=== PATIENT | male | born 1975 | race Caucasian/White ===

== ENCOUNTER 2017-01-25 14:13 | Emergency (ER) | payer MEDICAID ==
--- NOTE | ~2017-01-25 | CR63 ---
[facility] RADIOLOGY TEXT RESULTS PATIENT: JAVIER GAINES LOCATION: SED : 75 UNIT #: [id number] AGE: [address]: Miles Reed DO SEX: M ORDER DR: [id number] [address] [address] [id number] E MR#: [id number] Acc #: [id number] NAME: JAVIER GAINES : 1975 SEX: M STUDY DATE/TIME: 01/25/2017 14:18 UNIT: SED ROOM: STUDY DESCRIPTION: CR Chest 2 View Attending Physician: Miles Reed Ordering Physician: Staff Doctor Not On Primary Care Physician: Mara Hurst M.D. MEDICAL IMAGING REPORT This report is preliminary unless electronic signature is present. EXAM 2 views chest HISTORY Cough, left side chest pain. Symptoms for 6 weeks. Left side chest pain began today. FINDINGS PA and lateral radiographs of the chest are presented. Comparison 07/27/2015. Heart and mediastinum normal in size and contour. The lungs well inflated. Localized area of relatively dense airspace disease in the posterior medial left lower lobe. A vaguely band-like/wedge-shaped configuration. This most likely represents an area of pneumonia. Please correlate with clinical presentation. Short-interval followup to confirm resolution recommended. Given location, correlate with any risk factors for aspiration. If the finding does not clear in the near-term with treatment for pneumonia or if the patient is not demonstrating clinical signs or symptoms of pneumonia then CT examination may be warranted for assessment of atypical airspace processees. In the appropriate clinical context, given the somewhat wedge-shaped configuration of the abnormality, the possibility of pulmonary infarct in the context of pulmonary thromboembolic disease might be considered. Weight should be given to clinical assessment. Remainder of lungs clear. There is no pleural effusion or pneumothorax and there is no suspicious nodule. Bony structures unremarkable. Dictated by... Piotr Bass M.D. THIS IS AN ELECTRONICALLY VERIFIED REPORT [facility] RADIOLOGY TEXT RESULTS PATIENT: JAVIER GAINES LOCATION: SED : 75 UNIT #: [id number] AGE: [address]: Miles Reed DO SEX: M ORDER DR: Piotr Bsas M.D. at 01/27/2017 4:24 PM PREM/bola TD: 01/26/2017 06:23 JOB #: [id number] MEDICAL IMAGING REPORT
[~2017-01-25 14:13] MED LIST: CIPRO PO; DEPAKOTE PO; EFFEXOR XR150 MG PO; IBUPROFEN800 MG PO; KLONOPIN1 MG PO; NO MEDICATIONS; REMERON30 MG PO; RISPERIDONE PO; ZOFRAN ODT4 MG PO
== END 2017-01-25 16:15 | disposition home or self-care (01) ==
LOC: SED 14:13
DX: J84.9 Interstitial pulmonary disease, unspecified (principal); F20.9 Schizophrenia, unspecified; F31.9 Bipolar disorder, unspecified; F41.9 Anxiety disorder, unspecified; F17.210 Nicotine dependence, cigarettes, uncomplicated
CPT/HCPCS: 71020; 99283